=== PATIENT | female | born 1980 | race Caucasian/White ===

== ENCOUNTER 2023-01-30 17:08 | Emergency (ER) | payer BC, SELFPAY ==
[2023-01-30 17:19] VITALS: BP 124/84; PULSE 120; RESP 18; TEMP 36.6; O2SAT 98
--- NOTE | 2023-01-30 17:47 | ED.GENADULT ---
HPI - General Adult General Chief complaint: Animal Bite Stated complaint: Animal Bite Lt Hand and Arm Time Seen by Provider: 01/30/23 17:47 Source: patient Mode of arrival: ambulatory Limitations: no limitations History of Present Illness HPI narrative: 42-year-old female patient presents to the [facility] with complaints of a dog bite to left hand. Patient states that should her dogs were fighting and she went to go and close the gate and slipped and right and she slipped and fell 1 of the dogs was lunging towards the other dog and accidentally bit her left hand. Patient states that these are her dolls in her all of her vaccinations are up to date. Patient states her last tetanus shot was in 2021. Related Data Home Medications Medication Instructions Recorded Confirmed dextroamphetamine-amphetamine ER 25 mg PO QAM 01/30/23 01/30/23 25 mg 24hr capsule,extend release (Adderall XR) enalapril 10 1 tablet PO DAILY 01/30/23 01/30/23 mg-hydrochlorothiazide 25 mg tablet fluoxetine 60 mg tablet 60 mg PO DAILY 01/30/23 01/30/23 levonorgestrel 21 mcg/24 hours (8 See Rx Instructions .Route .COMPLEX 01/30/23 01/30/23 yrs) 52 mg intrauterine device (Mirena) terazosin 5 mg capsule 5 mg PO DAILY 01/30/23 01/30/23 Allergies Allergy/AdvReac Type Severity Reaction Status Date / Time amoxicillin AdvReac Mild Hives Verified 01/30/23 17:38 Review of Systems Review of Systems: CONSTITUTIONAL: Denies fever, chills, or sweats. EYES: Denies visual changes, redness, or discharge. ENT: Denies rhinorrhea, congestion, sore throat, or otalgia. CARDIOVASCULAR: Denies chest pain, palpitations, or edema. RESPIRATORY: Denies cough or dyspnea. GASTROINTESTINAL: Denies abdominal pain, nausea, vomiting, or diarrhea. GENITOURINARY: Denies dysuria or hematuria. SKIN: Denies rash or itching. Positive dog bite with wounds to left hand MUSCULOSKELETAL: Denies back pain, joint pain, or myalgia. NEUROLOGIC: Denies headache, numbness, or weakness. PSYCHIATRIC: Denies anxiety or depression. FORMERLY [facility] Past Medical History Medical History (Updated 01/30/23 @ 18:17 by LUPE Ramirez) No significant past medical history Comments At the time of my signature I agree with nursing past medical history, surgical, social, and family history. There is no relevant family history pertinent to the presenting complaint. Exam Narrative: GENERAL: Well-appearing, well-nourished, and in no acute distress. HEAD: Normocephalic, atraumatic. EYES: PERRLA and EOMI. ENT: Nares clear, no rhinorrhea or epistaxis. Mucous membranes moist. NECK: Supple. No lymphadenopathy CHEST: Clear to auscultation. No respiratory distress. HEART: Regular rate and rhythm. No murmur heard. Normal peripheral pulses. ABDOMEN: Soft, nontender, nondistended, normal active bowel sounds. EXTREMITIES: Normal range of motion. No edema. SKIN: patient has multiple wounds to the left hand and forearm most the forearm appears to be some superficial puncture wounds. On the palm side of the left hand there is approximately 2.5 cm laceration with fat exposure and 2 small puncture wounds with fat exposure. There is another puncture wound with a small lack on the dorsal side of the left hand between the 4th and 5th metacarpals. Patient has excellent range of motion to all fingers and hands. Pulses are intact. Patient complains of slight numbness along the 5th pinky finger area. NEURO: No focal deficits. Alert and oriented x3. Course Course Level of Care: Express Care Visit Vital Signs Vital signs: Vital Signs Temperature 36.6 C 01/30/23 17:19 Pulse Rate 120 H 01/30/23 17:19 Respiratory Rate 18 01/30/23 17:19 Blood Pressure 124/84 01/30/23 17:19 Pulse Oximetry 98 01/30/23 17:19 Oxygen Delivery Room Air 01/30/23 17:19 Temperature 36.6 C 01/30/23 17:19 Pulse Rate 120 H 01/30/23 17:19 Respiratory Rate 18 01/30/23 17:19 Blood Pressure 124/84
== END 2023-01-30 18:15 | disposition home or self-care (01) ==
PROVIDERS: Emergency Provider Nurse Practitioner Family
DX: S61.452A Open bite of left hand, initial encounter (principal); W54.0XXA Bitten by dog, initial encounter
CPT/HCPCS: 12002; 99213; G0463

== ENCOUNTER 2023-01-31 08:02 | Emergency (ER) | payer BC, SELFPAY ==
--- NOTE | 2023-01-31 08:15 | ED.GENADULT ---
HPI - General Adult General Chief complaint: Skin/Abscess/Foreign Body Stated complaint: wound check Time Seen by Provider: 01/31/23 08:15 Source: patient Mode of arrival: ambulatory Limitations: no limitations History of Present Illness HPI narrative: 42-year-old female patient presents to the [facility] for wound check. Patient was seen in [facility] yesterday for a dog bite of the left hand. Patient states that she feels the Steri-Strips are coming off and has been having some discharge through the dressing and when to come and get it checked today. Denies any fevers, body aches or chills. Denies any other complications today. Related Data Home Medications Medication Instructions Recorded Confirmed dextroamphetamine-amphetamine ER 25 mg PO QAM 01/30/23 01/31/23 25 mg 24hr capsule,extend release (Adderall XR) enalapril 10 1 tablet PO DAILY 01/30/23 01/31/23 mg-hydrochlorothiazide 25 mg tablet fluoxetine 60 mg tablet 60 mg PO DAILY 01/30/23 01/31/23 levonorgestrel 21 mcg/24 hours (8 See Rx Instructions .Route .COMPLEX 01/30/23 01/31/23 yrs) 52 mg intrauterine device (Mirena) terazosin 5 mg capsule 5 mg PO DAILY 01/30/23 01/31/23 Allergies Allergy/AdvReac Type Severity Reaction Status Date / Time amoxicillin AdvReac Mild Hives Verified 01/31/23 08:10 Review of Systems Review of Systems: CONSTITUTIONAL: Denies fever, chills, or sweats. EYES: Denies visual changes, redness, or discharge. ENT: Denies rhinorrhea, congestion, sore throat, or otalgia. CARDIOVASCULAR: Denies chest pain, palpitations, or edema. RESPIRATORY: Denies cough or dyspnea. GASTROINTESTINAL: Denies abdominal pain, nausea, vomiting, or diarrhea. GENITOURINARY: Denies dysuria or hematuria. SKIN: Denies rash or itching. Positive laceration left hand from dog bite MUSCULOSKELETAL: Denies back pain, joint pain, or myalgia. NEUROLOGIC: Denies headache, numbness, or weakness. PSYCHIATRIC: Denies anxiety or depression. [facility] Past Medical History Medical History (Updated 01/31/23 @ 08:57 by LUPE Ramirez) Hypertension No significant past medical history Comments At the time of my signature I agree with nursing past medical history, surgical, social, and family history. There is no relevant family history pertinent to the presenting complaint. Exam Narrative: GENERAL: Well-appearing, well-nourished, and in no acute distress. HEAD: Normocephalic, atraumatic. EYES: PERRLA and EOMI. ENT: Nares clear, no rhinorrhea or epistaxis. Mucous membranes moist. NECK: Supple. No lymphadenopathy CHEST: Clear to auscultation. No respiratory distress. HEART: Regular rate and rhythm. No murmur heard. Normal peripheral pulses. ABDOMEN: Soft, nontender, nondistended, normal active bowel sounds. EXTREMITIES: Normal range of motion. No edema. SKIN: Warm, dry, no rash. patient's 2 cm laceration on the palm of left hand does appear to have popped open and there is adipose tissue that is present. Steri-Strips are not sticking well. There is no surrounding erythema, or concerning discharge from the wounds. No warmth to the skin. NEURO: No focal deficits. Alert and oriented x3. Course Course Level of Care: Express Care Visit Vital Signs Vital signs: Vital Signs Temperature 36.3 C L 01/31/23 08:18 Pulse Rate 96 01/31/23 08:18 Respiratory Rate 18 01/31/23 08:18 Blood Pressure 132/78 01/31/23 08:18 Pulse Oximetry 100 01/31/23 08:18 Oxygen Delivery Room Air 01/31/23 08:18 Temperature 36.3 C L 01/31/23 08:18 Pulse Rate 96 01/31/23 08:18 Respiratory Rate 18 01/31/23 08:18 Blood Pressure 132/78 01/31/23 08:18 Pulse Oximetry 100 01/31/23 08:18 Oxygen Delivery Room Air 01/31/23 08:18 Title vital signs reviewed Procedures Laceration Laceration 1: Date: 01/31/23 Time: 09:00 Site: hand Side (If applicable): left Size (cm): 2.5 Description: flap
[2023-01-31 08:18] VITALS: BP 132/78; PULSE 96; RESP 18; TEMP 36.3; O2SAT 100
== END 2023-01-31 08:57 | disposition home or self-care (01) ==
PROVIDERS: Emergency Provider Nurse Practitioner Family
DX: S61.452A Open bite of left hand, initial encounter (principal); I10 Essential (primary) hypertension; Z79.899 Other long term (current) drug therapy; W54.0XXA Bitten by dog, initial encounter
CPT/HCPCS: 12001; 99212; G0463

== ENCOUNTER 2023-02-10 17:56 | Emergency (ER) | payer BC, SELFPAY ==
[2023-02-10 18:10] VITALS: BP 136/90; PULSE 91; RESP 16; TEMP 36.6; O2SAT 100
--- NOTE | 2023-02-10 18:17 | ED.SKABFB ---
HPI - Skin/Abscess/Foreign Bdy General Chief complaint: Animal Bite Stated complaint: wound check Time Seen by Provider: 02/10/23 18:17 Source: patient Mode of arrival: ambulatory Limitations: no limitations History of Present Illness HPI narrative: 42-year-old female presents with complaint of possible infection to left lower extremity. Patient seen for dog bites January 30. Was prescribed doxycycline to prevent infection. has finished doxycycline. Reports over the past several days has had pain to left lower extremity when ambulatory. Yesterday noticed redness. Redness increasing today states that left lower extremity is swollen and feels tight. Afebrile. All systems reviewed and negative except as noted above. Related Data Home Medications Medication Instructions Recorded Confirmed dextroamphetamine-amphetamine ER 25 mg PO QAM 01/30/23 02/10/23 25 mg 24hr capsule,extend release (Adderall XR) enalapril 10 1 tablet PO DAILY 01/30/23 02/10/23 mg-hydrochlorothiazide 25 mg tablet fluoxetine 60 mg tablet 60 mg PO DAILY 01/30/23 02/10/23 levonorgestrel 21 mcg/24 hours (8 See Rx Instructions .Route .COMPLEX 01/30/23 02/10/23 yrs) 52 mg intrauterine device (Mirena) terazosin 5 mg capsule 5 mg PO DAILY 01/30/23 02/10/23 Allergies Allergy/AdvReac Type Severity Reaction Status Date / Time amoxicillin AdvReac Mild Hives Verified 02/10/23 18:23 Review of Systems Review of Systems: CONSTITUTIONAL: Denies fever, chills, or sweats. EYES: Denies visual changes, redness, or discharge. ENT: Denies rhinorrhea, congestion, sore throat, or otalgia. CARDIOVASCULAR: Denies chest pain, palpitations, or edema. RESPIRATORY: Denies cough or dyspnea. GASTROINTESTINAL: Denies abdominal pain, nausea, vomiting, or diarrhea. GENITOURINARY: Denies dysuria or hematuria. SKIN: Denies rash or itching. Reports redness, swelling, pain to left lower extremity. MUSCULOSKELETAL: Denies back pain, joint pain, or myalgia. NEUROLOGIC: Denies headache, numbness, or weakness. PSYCHIATRIC: Denies anxiety or depression. All other systems reviewed are negative, except as documented in HPI. [facility] Past Medical History Medical History (Updated 02/10/23 @ 18:48 by Nakita Arevalo NP) Hypertension No significant past medical history Comments At time of signature, agree with nursing past medical, surgical, social and family history. There is no relevant family history pertinent to the presenting complaint. Exam Narrative: GENERAL: This is a well-nourished, well-developed patient, in no apparent distress. HEAD: normocephalic, atraumatic. EYES: PERRL. Sclera clear/white. Vision is grossly intact. EARS: External ears normal NOSE: External nose normal NECK: Neck supple, non-tender without lymphadenopathy, masses or thyromegaly. CARDIOVASCULAR: Regular rate and rhythm without murmurs, gallops, or rubs. RESPIRATORY: Clear to auscultation. Breath sounds equal bilaterally. No wheezes, rales, or rhonchi. SKIN: warm, Dry, intact with no suspicious lesions or rash, good texture and turgor. NEURO: awake, alert, and oriented to person, place and time. There were no obvious focal neurologic abnormalities. EXTREMITIES: No joint tenderness, effusion. Left lower extremity is swollen extending into left ankle. There is an area of erythema approximately 6 cm by 8 cm with mild warmth. No fluctuance. Tender on palpation. To healing punctures noted. No drainage. Course Course Level of Care: Express Care Visit Vital Signs Vital signs: Vital Signs Temperature 36.6 C 02/10/23 18:10 Pulse Rate 91 02/10/23 18:10 Respiratory Rate 16 02/10/23 18:10 Blood Pressure 136/90 02/10/23 18:10 Pulse Oximetry 100 02/10/23 18:10 Oxygen Delivery Room Air 02/10/23 18:10 Temperature 36.6 C 02/10/23 18:10 Pulse Rate 91 02/10/23 18:10 Respiratory Rate 16 02/10/23 18:10 Blood Pressure 136/90 02/10/23
== END 2023-02-10 19:21 | disposition home or self-care (01) ==
PROVIDERS: Emergency Provider Nurse Practitioner Family
DX: S81.832D Puncture wound without foreign body, left lower leg, subsequent encounter (principal); L08.9 Local infection of the skin and subcutaneous tissue, unspecified; W54.0XXD Bitten by dog, subsequent encounter; I10 Essential (primary) hypertension
CPT/HCPCS: 99213; G0463